=== PATIENT | female | born 1950 | race Caucasian/White ===

== ENCOUNTER 2021-06-01 06:58 | Day surgery (SDC) | payer BC, MEDICARE ==
[~2021-06-01 06:58] MED LIST: Lactated Ringers 1,000 ML IV SCH
--- NOTE | 2021-06-01 07:21 | PCM.PREANE ---
Preanesthetic Assessment - Anesthesia/Transfusion/Family Hx Anesthesia History: Prior Anesthesia Without Reaction Family History of Anesthesia Reaction: No Transfusion History: Prior Transfusion Without Reaction - Review of Systems General: No Symptoms Pulmonary: No Symptoms, Cough, Other (Recent onset cough when drinking (reason for EGD). Asthma; only uses inhailer when experiencing pulmonary illness.) Cardiovascular: Other (Recent [employer] visit with echo: EF 60%, Mild , Trace MR, Mild TR) Gastrointestinal: No Symptoms, Other (GERD well controlled on meds) Neurological: No Symptoms Other: Reports: None (DM with oral meds) - Physical Assessment NPO Status Date: 05/31/21 NPO Status Time: 00:00 Height: 1.65 m Weight: 73.936 kg ASA Class: 3 Mental Status: Alert & Oriented x3 Airway Class: Mallampati = 3 Dentition: Reports: Dentures (Permanant upper plate) Thyro-Mental Finger Breadths: 3 Mouth Opening Finger Breadths: 3 ROM/Head Extension: Full Lungs: Clear to Auscultation Cardiovascular: Other (Systolic murmer) - Allergies Allergies/Adverse Reactions: Allergies Allergy/AdvReac Type Severity Reaction Status Date / Time morphine Allergy Nausea and Verified 05/26/21 10:01 Vomiting - Blood Blood Available: No Product(s) Available: None - Anesthesia Plan Pre-Op Medication Ordered: Antacids - Acknowledgements Anesthesia Type Planned: MAC Pt an Appropriate Candidate for the Planned Anesthesia: Yes Alternatives and Risks of Anesthesia Discussed w Pt/Guardian: Yes Pt/Guardian Understands and Agrees with Anesthesia Plan: Yes Additional Comments: Pt accepts risks and benefits of anesthesia. 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: Musculoskeletal History: Reports: Fracture Other Musculoskeletal History: hx of fx arm and foot Neurological History: Reports: Concussion Psychiatric History: Reports: None Endocrine/Metabolic History: Reports: Diabetes, Type II Other Endocrine/Metabolic History: recent weight loss Hematologic History: Reports: Blood Transfusion(s) Immunologic History: Reports: None Oncologic (Cancer) History: Reports: None Dermatologic History: Reports: None - Past Surgical History Head Surgeries/Procedures: Reports: None HEENT Surgical History: Reports: Naso-Sinus Surgery Other HEENT Surgeries/Procedures: repair of fx nose Cardiovascular Surgical History: Reports: None GI Surgical History: Reports: Appendectomy, Cholecystectomy, EGD Female Surgical History: Reports: Hysterectomy Endocrine Surgical History: Reports: None Neurological Surgical History: Reports: Discectomy, Lumbar Spine Musculoskeletal Surgical History: Reports: None Oncologic Surgical History: Reports: None - SUBSTANCE USE Tobacco Use Status *Q: Never Tobacco User Recreational Drug Use History: No - HOME MEDS Home Medications: Home Meds Albuterol Sulfate 2.5 mg NEB ASDIRECTED PRN 05/26/21 [History] Albuterol [Proventil HFA] 1 puff INH Q4H PRN 05/26/21 [History] Benzonatate 100 mg PO TID PRN 05/26/21 [History] Fluticasone Propionate [Flonase Allergy Relief] 2 spray NASBOTH DAILY PRN 05/26/21 [History] Fluticasone/Salmeterol [Advair 500-50] 1 puff INH BID 05/26/21 [History] Furosemide 20 mg PO QAM 05/26/21 [History] Irbesartan 150 mg PO QAM 05/26/21 [History] Montelukast Sodium 10 mg PO BEDTIME 05/26/21 [History] RABEprazole Sodium [Aciphex] 20 mg PO DAILY 05/26/21 [History] Saxagliptin HCl [Onglyza] 5 mg PO BEDTIME 05/26/21 [History] metFORMIN HCl [Metformin HCl ER] 500 mg PO BID 05/26/21 [History] - CURRENT (IN HOUSE) MEDS Current Meds: Current Medications Lactated Ringer's (Ringers, Lactated) 1,000 mls @ 125 mls/hr IV ASDIRECTED [facility]
[2021-06-01] MEDS ORDERED: Propofol 200 MG/20 ML SDV ONE ×2 (07:48→08:46)
[2021-06-01] MEDS ORDERED: Midazolam 1 MG/ML 2 ML SDV ONE (07:49)
--- NOTE | 2021-06-01 08:54 | PCM.OPNOTE ---
- General Post-Op/Procedure Note Date of Surgery/Procedure: 06/01/21 Operative Procedure(s): EGD with biopsies Findings: Gastritis with punctate bleeding Moderate size hiatal hernia small mound of tissue/polyp in the body of stomach dictation number [id number] Pre Op Diagnosis: Dysphagia. GERD Post-Op Diagnosis: Gastritis with punctate bleeding. Moderate size hiatal hernia. small mound of tissue/polyp in the body of stomach Primary Surgeon: Gaetano Morelos Pathology: Multiple biopsies Complications: None Condition: Good
--- NOTE | 2021-06-01 09:01 | PCM.POSTAN ---
POST ANESTHESIA ASSESSMENT - MENTAL STATUS Mental Status: Somnolent - VITAL SIGNS Vital Signs: Last Vital Signs Temp 97.2 F 06/01/21 07:08 Pulse 104 H 06/01/21 08:55 Resp 20 06/01/21 08:55 BP 79/41 L 06/01/21 08:55 Pulse Ox 99 06/01/21 08:55 - RESPIRATORY Respiratory Status: Respiratory Rate WNL, Airway Patent, O2 Saturation Stable - CARDIOVASCULAR CV Status: Pulse Rate WNL, Blood Pressure Stable - GASTROINTESTINAL GI Status: No Symptoms - PAIN Free Text/Narrative:: resting comfortably - POST OP HYDRATION Hydration Status: Adequate & Stable
--- NOTE | 2021-06-01 09:14 | PCM48HPAN ---
Post Anesthesia Note - EVALUATION WITHIN 48HRS OF ANESTHETIC Vital Signs in Normal Range: Yes Patient Participated in Evaluation: Yes Respiratory Function Stable: Yes Airway Patent: Yes Cardiovascular Function Stable: Yes Hydration Status Stable: Yes Pain Control Satisfactory: Yes Nausea and Vomiting Control Satisfactory: Yes Mental Status Recovered: Yes Vital Signs: Last Vital Signs Temp 97.2 F 06/01/21 07:08 Pulse 101 H 06/01/21 09:11 Resp 15 06/01/21 09:11 BP 97/55 L 06/01/21 09:11 Pulse Ox 95 06/01/21 09:11 - COMMENTS/OBSERVATIONS Free Text/Narrative:: Pt doing well post-op. VSS. No apparent anesthetic complications. Dr. Denny Goodson
--- NOTE | 2021-06-01 10:09 | OR ---
SURGEON: FREDDY WEBER MD DATE OF PROCEDURE: 06/01/2021 PREOPERATIVE DIAGNOSES: Dysphagia and gastroesophageal reflux disease. POSTOPERATIVE DIAGNOSES: 1. Moderate gastritis with punctate bleeding. 2. Moderate-sized hiatal hernia. 3. There is a small amount of tissue/polyp in the body of the stomach. PROCEDURE PERFORMED: Esophagogastroduodenoscopy with biopsy/polypectomy. PRIMARY SURGEON: Freddy Weber MD ANESTHESIA: With anesthesiologist. EXTENT OF EGD: To the second part of the duodenum. REASON FOR PROCEDURE: The patient is a pleasant 71-year-old female who says since August 2020 she has been losing weight. She has lost about 60 pounds. She also has started having issues with swallowing. Solid foods get stuck in her distal esophagus and will have nausea. She says water along with tomatoes and orange juice would trigger, and milk seems to make it better. The patient said she did have a GI swallow a couple of years ago, it was normal. She also said she had an EGD about 10 to 15 years ago, it was normal. The patient was supposed to take a PPI. She took it for a while and that seemed to help. However, she says she recently reduced the dose of her metformin and that seems to help a lot with her GERD, but she still has a little bit of nausea. PROCEDURE IN DETAIL: Physical examination was performed. The major risks and benefits associated with the procedure were explained to the patient in detail. The patient verbalized understanding of the same. The patient was then connected to the appropriate monitoring device and IV started. EKG, pulse, pulse oximetry, blood pressure, and capnography were monitored throughout the entire procedure. Continuous oxygen and sedation were provided by the anesthesiologist. Now, after time-out, the upper endoscope was advanced under direct visualization without difficulty in the GI tract and the mucosa of the esophagus, GE junction, stomach, pylorus, and at least the second part of the duodenum were all inspected. Duodenum appeared normal. Scope was brought up into the stomach. Stomach mucosa did show some moderate gastritis with punctate areas of bleeding, no real active bleeding though. Mucosa looked irritated, slightly thickened. On retroflexion, the patient did have a moderate-sized hiatal hernia, looked like most of her fundus of the stomach was up. This hiatal hernia caused angulation of the stomach to be slightly more acute than normal. Also, stomach never really fully inflated. Did do random biopsies around the pylorus, antrum. Did random biopsies of the body of the stomach. The patient had a small amount of tissue, which could just be some hyperplasia or maybe beginning of a polyp. This was removed with cold biopsy polypectomy. There was good hemostasis. Scope was brought to the hiatal hernia, which appeared to be likely most of the fundus. Did do random biopsies of this. The scope was brought to the GE junction. GE junction actually had a good squamocolumnar junction. The GE junction was approximately 31 cm from incisor. The scope was brought back into the stomach. The stomach had good hemostasis from the biopsy sites. The stomach was desufflated. Scope was brought back up to the esophagus. Distal esophagus did appear normal. Scope was completely removed. Procedure was terminated. ENDOSCOPIC DIAGNOSES: 1. Gastritis with some old punctate bleeding. 2. Moderate-sized hiatal hernia. 3. Small amount of some beginning of hyperplastic tissue or beginning of polyp in the body of the stomach. RECOMMENDATIONS: I do recommend the patient continue her PPI. She is to come back to the clinic for followup for her pathology. She might need a swallow to further evaluate. If she continues to have GERD symptoms, she might need a referral to a place that does repair of hiatal hernias. TRISTAN / EWA /[id number]
== END 2021-06-01 09:42 | disposition home or self-care (01) ==
LOC: MW.SDS 06:58
PROVIDERS: ATTEND Surgery
DX: C16.3 Malignant neoplasm of pyloric antrum (principal); K29.50 Unspecified chronic gastritis without bleeding; K44.9 Diaphragmatic hernia without obstruction or gangrene; B96.81 Helicobacter pylori [H. pylori] as the cause of diseases classified elsewhere; E11.9 Type 2 diabetes mellitus without complications; J45.909 Unspecified asthma, uncomplicated; I10 Essential (primary) hypertension; Z79.899 Other long term (current) drug therapy; Z88.6 Allergy status to analgesic agent; Z79.84 Long term (current) use of oral hypoglycemic drugs
CPT/HCPCS: 43239; 88305; 88342; J2250; J2704; J7120; 00731; 99100

== ENCOUNTER 2022-12-18 23:27 | Inpatient (IN) | payer MEDICARE, OTHER ==
[2022-12-18] MEDS ORDERED: Sodium Chloride 0.9% 1,000 ML IV ONE (23:30)
[2022-12-18] MEDS ORDERED: Ondansetron 4 MG/2 ML SDV IVPUSH ONE (23:30)
[2022-12-18] MEDS ORDERED: Ondansetron 4 MG/2 ML SDV ONE (23:30)
[2022-12-19 00:07] LABS: BLOOD UREA NITROGEN,BUN 37 mg/dL (7.0-18.0); CARBON DIOXIDE,CO2 20.5 mmol/L (21.0-32.0); CHLORIDE,CL 107 mmol/L (98-107); ESTIMATED GFR 40 mL/min (>60); GLUCOSE RANDOM 148 mg/dL (74-106); LIPASE 69 U/L (73-393); POTASSIUM,K 5.4 mmol/L (3.5-5.1); SODIUM,NA 143 mmol/L (136-145)
[2022-12-19] MEDS ORDERED: Sodium Chloride 0.9% 1,000 ML IV ONE (00:15)
[2022-12-19] MEDS ORDERED: Azithromycin 500 MG in Sodium Chloride 0.9% 250 ML IV ONE (01:07)
[2022-12-19] MEDS ORDERED: Cefepime 2 GM Vial ONE (01:57)
[2022-12-19] MEDS ORDERED: Sodium Chloride 0.9% 50 ML ONE (01:57)
[2022-12-19] MEDS: Cefepime 2 GM in Sodium Chloride 0.9% 50 ML IV ONE ×2 (02:00→02:11)
[2022-12-19] MEDS ORDERED: Iopamidol 755 MG/ML 500 ML Multipack Bottle IVPUSH STA (03:06)
[2022-12-19] MEDS ORDERED: Ondansetron 4 MG/2 ML SDV IVPUSH PRN (08:03)
[2022-12-19] MEDS ORDERED: Sodium Chloride 0.9% 2.5 ML Syringe FLUSH PRN (08:03)
[2022-12-19] MEDS ORDERED: Acetaminophen 325 MG Tab PO PRN (08:03)
[2022-12-19] MEDS ORDERED: Sodium Chloride 0.9% 10 ML Syringe FLUSH PRN (08:03)
[2022-12-19] MEDS ORDERED: Sodium Chloride 0.9% 1,000 ML IV SCH (08:15)
[2022-12-19] MEDS ORDERED: Albuterol/Ipratropium 3.0-0.5 MG/3 ML Neb Soln NEB PRN (08:24)
[2022-12-19] MEDS ORDERED: 50% Dextrose in Water 50 ML Syringe IVPUSH PRN (08:26)
[2022-12-19] MEDS ORDERED: Glucagon,Human Recombinant 1 MG Vial IM PRN (08:26)
[2022-12-19] MEDS ORDERED: Pantoprazole 40 MG Tab.CR PO SCH (08:30)
[2022-12-19 08:52] LABS: CARBON DIOXIDE,CO2 23.7 mmol/L (21.0-32.0); POTASSIUM,K 4.8 mmol/L (3.5-5.1)
[2022-12-19] MEDS ORDERED: Fluticasone/Salmeterol 100-50 MCG Inhalation Powder 14/Diskus INH SCH (09:00)
[2022-12-19] MEDS: Albuterol/Ipratropium 3.0-0.5 MG/3 ML Neb Soln NEB SCH ×2 (09:44→13:27)
[2022-12-19] MEDS ORDERED: Doxycycline 100 MG in Sodium Chloride 0.9% 100 ML IV SCH (10:00)
[2022-12-19] MEDS ORDERED: Insulin Aspart 100 Units/ML 3 ML Pen SUBCUT SCH (11:30)
[2022-12-19] MEDS ORDERED: Heparin Sodium 5,000 Units/ML Vial SUBCUT SCH (13:00)
[2022-12-19] MEDS ORDERED: Cefepime 2 GM in Sodium Chloride 0.9% 50 ML IV SCH (14:00)
[2022-12-20] MEDS ORDERED: Azithromycin 500 MG in Sodium Chloride 0.9% 250 ML IV SCH (01:00)
== END 2022-12-19 16:10 | DRG 177 ==
LOC: MW.ED 23:27 → MW.MS 12-19 06:33
PROVIDERS: ADMIT Internal Medicine; ATTEND Internal Medicine
DX: J69.0 Pneumonitis due to inhalation of food and vomit (principal); I46.9 Cardiac arrest, cause unspecified; J96.21 Acute and chronic respiratory failure with hypoxia; E87.20 Acidosis, unspecified; R18.8 Other ascites; I24.8 Other forms of acute ischemic heart disease; C16.9 Malignant neoplasm of stomach, unspecified; E86.0 Dehydration; J18.9 Pneumonia, unspecified organism; Z20.822 Contact with and (suspected) exposure to COVID-19; K44.9 Diaphragmatic hernia without obstruction or gangrene; E11.9 Type 2 diabetes mellitus without complications; R13.10 Dysphagia, unspecified; I10 Essential (primary) hypertension; J84.10 Pulmonary fibrosis, unspecified; I27.20 Pulmonary hypertension, unspecified; K74.60 Unspecified cirrhosis of liver; Z79.51 Long term (current) use of inhaled steroids; K21.9 Gastro-esophageal reflux disease without esophagitis; Z90.710 Acquired absence of both cervix and uterus; Z90.49 Acquired absence of other specified parts of digestive tract; Z98.890 Other specified postprocedural states; Z88.5 Allergy status to narcotic agent; Z79.84 Long term (current) use of oral hypoglycemic drugs; Z79.899 Other long term (current) drug therapy
CPT/HCPCS: 36415; 70450; 70450-26; 71045; 71045-26; 71275; 71275-26; 72125; 72125-26; 80053; 80305-QW; 80307; 81001; 82550; 82803; 82947; 83605; 83690; 83735; 84100; 84484; 85025; 85610; 85730; 87040; 93005; 93010; 94640; 96361; 96365; 96368; 96375; 99236; 99285-25; 99291; A9270-GY; J0456; J0692; J2405; J3490; J7030; J7050; J7620-GY; Q9967; U0002